=== PATIENT | male | born 1950 | race Caucasian/White ===

== ENCOUNTER 2020-07-11 16:21 | Emergency (ER) | payer MEDICARE, OTHER ==
[2020-07-11 16:42] VITALS: BP 114/74; PULSE 65
[2020-07-11 17:27] LABS: ANION GAP 15.3 mEq/L (7-13)
--- NOTE | 2020-07-11 17:38 | EDM.PDOC ---
ED HPI GENERAL MEDICAL PROBLEM - General Chief Complaint: Gastrointestinal Problem Stated Complaint: BLOOD IN STOOL SENT BY DR.KELLY WHITEHEAD Time Seen by Provider: 07/11/20 17:20 Source of Information: Reports: Patient History Limitations: Reports: No Limitations - History of Present Illness INITIAL COMMENTS - FREE TEXT/NARRATIVE: This 69 yo male patient reports to the ED due to black stools. The patient reports he noticed a partial black stool last night, but today his stools was all black. The patient was in the hospital last week due to new onset a fib. During the stay in the hospital, the patient was started on Eliquis and Prednisone. The patient reports he saw his primary care provider (Mara Whitehead) on Wednesday and was doing pretty well. The patient reports he has not been having any troubles over the week until last night. The patient reports he currently has some "gas pains". The patient did call his primary care facility, but was advised to come to the ED. Onset Date: 07/10/20 Duration: Other Location: Reports: Other Quality: Reports: Other Severity: Mild Improves with: Reports: None Worsens with: Reports: None Context: Reports: Other Associated Symptoms: Reports: No Other Symptoms - Related Data Allergies Allergy/AdvReac Type Severity Reaction Status Date / Time No Known Allergies Allergy Verified 07/11/20 16:42 Home Meds: Home Meds Gabapentin 400 mg PO TID 01/23/15 [History] Propranolol HCl 40 mg PO ASDIRECTED PRN 01/23/15 [History] Propranolol HCl [Propranolol HCl ER] 80 mg PO BID 01/23/15 [History] Rosuvastatin [Crestor] 5 mg PO .TRAMAINE VILLAGOMEZ 01/23/15 [History] Vardenafil HCl [Levitra] 10 mg PO ASDIRECTED PRN 01/23/15 [History] Cetirizine [ZyrTEC] 10 mg PO DAILY 06/28/20 [History] Ezetimibe [Zetia] 10 mg PO DAILY 06/28/20 [History] Ipratropium [place] 2 sprays NS TID 06/28/20 [History] Omeprazole 20 mg PO ACDINNER 06/28/20 [History] Aspirin 81 mg PO DAILY 30 Days #30 tab.chew 06/29/20 [Rx] Doxycycline Monohydrate 100 mg PO BID 5 Days #10 cap 06/29/20 [Rx] Patient's Own Medication [Ptom] 1 each PO DAILY each 06/29/20 [Rx] predniSONE 40 mg PO WITHBREAKFAST 1 Days #1 tablet 06/29/20 [Rx] Past Medical History HEENT History: Reports: Allergic Rhinitis, Cataract, Hard of Hearing, Otitis Media, Sinusitis Cardiovascular History: Reports: Arrhythmia, High Cholesterol, PVD, Other (See Below) Other Cardiovascular History: HEART PALPITATIONS Respiratory History: Reports: Asthma, Sleep Apnea, Other (See Below) Other Respiratory History: REACTIVE AIRWAY DISEASE Gastrointestinal History: Reports: Other (See Below) Other Gastrointestinal History: DIVERTICULOSIS; RECTAL BLEED Genitourinary History: Reports: Renal Calculus, Other (See Below) Other Genitourinary History: ERECTILE DYSFUNCTION; CKD; L RENAL COLIC SECONDARY TO RENAL CALCULI Musculoskeletal History: Reports: Back Pain, Chronic, Other (See Below) Other Musculoskeletal History: IMPINGEMENT SYNDROME SHOULDER HX OF CORTISONE INJECTION; MEDIAL EPICONDYLITIS OF ELBOW; DDD LUMBAR Neurological History: Reports: Neuropathy, Peripheral Psychiatric History: Reports: None Endocrine/Metabolic History: Reports: Obesity/BMI 30+ Hematologic History: Reports: None Immunologic History: Reports: None Oncologic (Cancer) History: Reports: None Dermatologic History: Other Dermatologic History: HX OF PILONIDAL CYST - Infectious Disease History Infectious Disease History: Reports: Chicken Pox, Mumps - Past Surgical History HEENT Surgical History: Reports: Cataract Surgery GI Surgical History: Reports: Colonoscopy Male Surgical History: Reports: Lithotripsy (ESWL), Other (See Below) Other Male Surgeries/Procedures: CYSTOSCOPY Neurological Surgical History: Reports: Other (See Below) Other Neurological Surgeries/Procedures: EPIDURAL STERIOD INJECTION Dermatological Surgical History: Reports: Other (See Below) Social & Family History - Family History Family Medical History: No Pertinent Family History - Tobacco Use Tobacco Use Status *Q: Never Tobacco User - Caffeine Use Caffeine Use: Reports: Coffee - Recreational Drug Use Recreational Drug Use: No ED ROS GENERAL - Review of Systems Review Of Systems: Comprehensive ROS is negative, except as noted in HPI. ED EXAM, GI/ABD - Physical Exam Exam: See Below Exam Limited By: No Limitations General Appearance: Alert, WD/WN, No Apparent Distress Eyes: Bilateral: Normal Appearance, EOMI Ears: Normal External Exam, Normal Canal, Hearing Grossly Normal, Normal TMs Nose: Normal Inspection, Normal Mucosa, No Blood Throat/Mouth: Normal Inspection, Normal Lips, Normal Teeth, Normal Gums, Normal Oropharynx, Normal Voice, No Airway Compromise Head: Atraumatic, Normocephalic Neck: Normal Inspection, Supple, Non-Tender, Full Range of Motion Respiratory/Chest: No Respiratory Distress, Lungs Clear, Normal Breath Sounds, No Accessory Muscle Use, Chest Non-Tender Cardiovascular: Normal Peripheral Pulses, Regular Rate, Rhythm, No Edema, No Gallop, No JVD, No Murmur, No Rub GI/Abdominal Exam: Normal Bowel Sounds, Soft, Non-Tender, No Organomegaly, No Distention, No Abnormal Bruit, No Mass, Pelvis Stable (Male) Exam: Deferred Rectal (Males) Exam: Normal Rectal Tone, Prostate Normal, Black Stool (dark stool) Back Exam: Normal Inspection, Full Range of Motion, NT Extremities: Normal Inspection, Normal Range of Motion, Non-Tender, Normal Capillary Refill, No Pedal Edema Neurological: Alert, Oriented, CN II-XII Intact, Normal Cognition, Normal Gait, Normal Reflexes, No Motor/Sensory Deficits Psychiatric: Normal Affect, Normal Mood Skin Exam: Warm, Dry, Intact, Normal Color, No Rash Lymphatic: No Adenopathy Course - Vital Signs Last Recorded V/S: Last Vital Signs Temp 97.6 F 07/11/20 16:39 Pulse 65 07/11/20 16:39 Resp 16 07/11/20 16:39 BP 114/74 07/11/20 16:39 Pulse Ox 97 07/11/20 16:39 - Orders/Labs/Meds Labs: Laboratory Tests 07/11/20 07/11/20 07/11/20 Range/Units 16:42 16:42 16:42 WBC 21.0 H (5.0-10.0) 10^3/uL RBC 5.48 (4.6-6.2) 10^6/uL Hgb 16.9 (14.0-18.0) g/dL Hct 49.9 (40.0-54.0) % MCV 91.1 (80-100) fL MCH 30.8 (27.0-34.0) pg MCHC 33.9 (33.0-35.0) g/dL Plt Count 313 (150-450) 10^3/uL Neut % (Auto) 78.4 H (42.2-75.2) % Lymph % (Auto) 14.4 L (20.5-50.1) % Martin % (Auto) 6.9 (2-8) % Eos % (Auto) 0.1 L (1.0-3.0) % Baso % (Auto) 0.2 (0.0-1.0) % Add Manual Diff Yes Neutrophils % (Manual) 72 (42-75) % Band Neutrophils % 3 % Lymphocytes % (Manual) 17 L (20-50) % Monocytes % (Manual) 2 (2-8) % Basophils % (Manual) 1 Myelocytes % 5 PT 10.9 (9.0-12.0) SEC INR 1.1 (0.9-1.2) Sodium 137 (136-145) mmol/L Potassium 4.3 (3.5-5.1) mmol/L Chloride 99 (98-107) mmol/L Carbon Dioxide 27 (21-32) mmol/L Anion Gap 15.3 H (7-13) mEq/L BUN 32 H (7-18) mg/dL Creatinine 1.47 H (0.70-1.30) mg/dL Est Cr Clr Drug Dosing 57.48 mL/min Estimated GFR (MDRD) 48 BUN/Creatinine Ratio 21.8 (No establ ref range) Glucose 146 H (70-99) mg/dL Calcium 8.9 (8.5-10.1) mg/dL Total Bilirubin 0.9 (0.2-1.0) mg/dL AST 40 H (15-37) U/L ALT 88 H (16-63) U/L Alkaline Phosphatase 59 (46-116) U/L Total Protein 7.5 (6.4-8.2) g/dL Albumin 3.9 (3.4-5.0) g/dL Globulin 3.6 Albumin/Globulin Ratio 1.1 Departure - Departure Time of Disposition: 18:19 Disposition: Home, Self-Care 01 Condition: Fair Clinical Impression: Dark stools - Discharge Information *PRESCRIPTION DRUG MONITORING PROGRAM REVIEWED*: Not Applicable *COPY OF PRESCRIPTION DRUG MONITORING REPORT IN PATIENT RUY: Not Applicable Forms: ED Department Discharge Care Plan Goals: The patient was advised of the examination and lab results during the visit. The patient was encouraged to take his Omeprazole in the morning at least 30 minutes before eating. The patient should continue to take his other prescribed medications as directed. If the patient has any additional symptoms or concerns, the patient should either return to the emergency department or visit his primary care facility. Sepsis Event Note (ED) - Evaluation Sepsis Screening Result: No Definite Risk - Focused Exam Vital Signs: Vital Signs Temp Pulse Resp BP Pulse Ox 07/11/20 16:39 97.6 F 65 16 114/74 97
== END 2020-07-11 18:33 | disposition home or self-care (01) ==
LOC: DL.ED 16:21
DX: K92.1 Melena (principal); E78.00 Pure hypercholesterolemia, unspecified; E66.9 Obesity, unspecified; Z79.82 Long term (current) use of aspirin; Z79.899 Other long term (current) drug therapy; Z68.38 Body mass index [BMI] 38.0-38.9, adult
CPT/HCPCS: 36415; 80053; 82272; 85025; 85610; 99283